=== PATIENT | female | born 1950 | race Caucasian/White ===

== ENCOUNTER 2024-03-09 06:22 | Inpatient (IN) | payer MEDICARE, OTHER ==
[~2024-03-09] VITALS: Ht 165.1 cm; Wt 59.0 kg
[2024-03-09] MEDS ORDERED: VANCOMYCIN 1 GM VIAL ONE (07:15)
[2024-03-09] MEDS ORDERED: ANESTHESIA TRAY IN PYXIS 1 EA TRAY MC ONE (07:15)
[2024-03-09] MEDS ORDERED: LIDOCAINE 2%-EPI 1:100,000 30 ML VIAL ONE (07:15)
[2024-03-09] MEDS ORDERED: dexaMETHasone SOD PHOSPHATE 2 ML ONE (07:15)
[2024-03-09] MEDS ORDERED: FENTANYL PF 250MCG/5ML AMPUL ONE (07:36)
[2024-03-09] MEDS ORDERED: ROCURONIUM BROMIDE 50 MG/5 ML ONE (07:36)
[2024-03-09] MEDS ORDERED: LABETALOL HCL IV 100MG VIAL ONE (07:55)
[2024-03-09 10:15] VITALS: BP 130/57; TEMP 98; O2SAT 96
[2024-03-09 10:30] VITALS: BP 123/57; TEMP 98.4; O2SAT 94
[2024-03-09] MEDS: IV NS 0.9% 1,000 ML IV PRN (10:59)
[2024-03-09] MEDS ORDERED: ONDANSETRON HCL/PF 4 MG/2 ML VIAL IV PRN (11:00)
[2024-03-09] MEDS ORDERED: ACETAMINOPHEN 325 MG TABLET PO PRN ×2 (11:00→12:30)
[2024-03-09] MEDS ORDERED: MAGNESIUM HYDROXIDE 30 ML UDC PO PRN (12:30)
[2024-03-09] MEDS ORDERED: HYDROCODONE/APAP 10/325MG TABLET PO PRN (12:30)
[2024-03-09] MEDS ORDERED: MAG HYDROX/AL HYDROX/SIMETH 30 ML UDC PO PRN (12:30)
[2024-03-09] MEDS ORDERED: ONDANSETRON HCL/PF 4 MG/2 ML VIAL IVP PRN (12:30)
[2024-03-09] MEDS ORDERED: Z GUARD REMEDY 4 OZ OINT TP PRN (12:30)
[2024-03-09] MEDS: HYDROMORPHONE 1 MG/1 ML DISP.SYRIN IV PRN (14:54)
[2024-03-09 16:00] VITALS: BP 122/56; TEMP 98.4; O2SAT 92
[2024-03-09] MEDS ORDERED: ESCI5TAB PO (16:32)
[2024-03-09] MEDS ORDERED: ZOLP5TAB8 PO (16:32)
[2024-03-09] MEDS ORDERED: ERGO500093 PO (16:32)
[2024-03-09] MEDS ORDERED: ASPI-1420 PO (16:32)
[2024-03-09] MEDS ORDERED: OLME1TAB88 PO (16:32)
[2024-03-09] MEDS: VANCOMYCIN 1 GM in IV D5W 250ml IV SCH (18:25)
[2024-03-09 20:00] VITALS: BP 128/61; TEMP 98.6; O2SAT 95
[2024-03-10 07:02] LABS: BASOPHILS % (AUTO) 0.1 % (0.0-2.0); HEMATOCRIT 32 % (33-45); HEMOGLOBIN 10.7 g/dL (11.5-14.8); LYMPHOCYTES # (AUTO) 1.3 K/uL (0.8-4.8); LYMPHOCYTES % (AUTO) 11.4 % (20.0-44.0); MEAN CORPUSCULAR HEMOGLOBIN 30 PG (26.0-33.0); MEAN CORPUSCULAR HGB CONC 34 g/dl (31.0-36.0); MEAN CORPUSCULAR VOLUME 89 fL (82-100); MONOCYTES # (AUTO) 0.6 K/uL (0.1-1.30); MONOCYTES % (AUTO) 5.5 % (2.0-12.0); NEUTROPHILS # (AUTO) 9.4 K/uL (1.8-8.9); PLATELET COUNT (AUTO) 300 K/uL (150-450); RED BLOOD CELL COUNT(AUTO) 3.59 MIL/uL (4.0-5.2); RED CELL DISTRIBUTION WIDTH 13.6 % (11.5-15.0); WHITE BLOOD COUNT (AUTO) 11.3 K/uL (4.3-11.0)
[2024-03-10 07:26] LABS: CARBON DIOXIDE 24 mmol/L (21-32); CHLORIDE 105 mmol/L (98-107); CREATININE 0.8 mg/dL (0.6-1.3); GLUCOSE 136 mg/dL (74-106); POTASSIUM 4.3 mmol/L (3.5-5.1); SODIUM SERUM 131 mmol/L (136-145); UREA NITROGEN, BLOOD 18 mg/dL (7-18)
[2024-03-10 08:00] VITALS: BP 121/55; TEMP 98.1; O2SAT 96
== END 2024-03-10 12:37 | disposition home or self-care (01) | DRG 497 ==
LOC: DS 06:22 → MED 06:25
PROVIDERS: ADMIT Nurse Practitioner Acute Care; ATTEND Nurse Practitioner Acute Care
PROC: 0NC Head and Facial Bones, Extirpation (ICD-10-PCS; principal; 2024-03-09)
PROC: 0N5R0ZZ Destruction of Maxilla, Open Approach (ICD-10-PCS; 2024-03-09)
PROC: 0N5V0ZZ Destruction of Left Mandible, Open Approach (ICD-10-PCS; 2024-03-09)
PROC: 0NSR04Z Reposition Maxilla with Internal Fixation Device, Open Approach (ICD-10-PCS; 2024-03-09)
PROC: 0NSV04Z Reposition Left Mandible with Internal Fixation Device, Open Approach (ICD-10-PCS; 2024-03-09)
PROC: 0NUV07Z Supplement Left Mandible with Autologous Tissue Substitute, Open Approach (ICD-10-PCS; 2024-03-09)
PROC: 0NUR07Z Supplement Maxilla with Autologous Tissue Substitute, Open Approach (ICD-10-PCS; 2024-03-09)
PROC: 09BQ0ZZ Excision of Right Maxillary Sinus, Open Approach (ICD-10-PCS; 2024-03-09)
DX: S02.40CK Maxillary fracture, right side, subsequent encounter for fracture with nonunion (principal); S02.69XK Fracture of mandible of other specified site, subsequent encounter for fracture with nonunion; X58.XXXA Exposure to other specified factors, initial encounter; M27.2 Inflammatory conditions of jaws; E78.5 Hyperlipidemia, unspecified; F17.210 Nicotine dependence, cigarettes, uncomplicated; I10 Essential (primary) hypertension; Z71.6 Tobacco abuse counseling; M27.49 Other cysts of jaw; X58.XXXD Exposure to other specified factors, subsequent encounter; T18.0XXA Foreign body in mouth, initial encounter; J32.0 Chronic maxillary sinusitis; D16.4 Benign neoplasm of bones of skull and face; Z82.49 Family history of ischemic heart disease and other diseases of the circulatory system
CPT/HCPCS: 36415; 80048-TC; 85025-TC; A4223; A4338; C1713; G0378; J0461; J0690; J1100; J1171; J2704; J3010; J3370; J3490; J7030; J7060